=== PATIENT | female | born 1970 | race Caucasian/White ===

== ENCOUNTER 2020-02-11 11:35 | Outpatient (CLI) | payer OTHER | END 2020-02-11 11:36 | disposition critical access hospital (66) | LOC: EMS 11:35 | PROVIDERS: ATTEND Surgery | DX: R68.83 Chills (without fever) (principal); R11.0 Nausea; R51 Headache | CPT/HCPCS: A0425; A0429 ==

== ENCOUNTER 2020-02-11 11:56 | Emergency (ER) | payer OTHER ==
[2020-02-11] MEDS ORDERED: VENLAFAXINE ER 75 MG CAPSULE PO STA (12:19)
--- NOTE | 2020-02-11 12:22 | ED Physician Documentation ---
History of Present Illness - Stated complaint Stated Complaint: ANXIETY - Chief complaint Chief Complaint: General - History obtained from History obtained from: Patient - History of Present Illness Timing: How many days ago (3) Pain level max: 0 Pain level now: 0 - Additonal information Additional information: 49-year-old female states that she ran out of her Effexor 3 days ago. Now feels shaky, nauseated, headache and generally unwell. Denies SI or HI. Nothing makes it better or worse. She takes 225 mg/day. She states that her doctor's office is closed until February 19 for "remodeling". She states that they are not filling out the forms that are needed for the pharmacy to fill her medication. Review of Systems Constitutional: denies: Fever, Chills GI: denies: Vomiting, Diarrhea Musculoskeletal: denies: Neck pain, Back pain Neurologic: denies: Focal weakness, Numbness PD PAST MEDICAL HISTORY - Past Medical History Past Medical History: No - Past Surgical History Past Surgical History: No - Present Medications Home Medications: Ambulatory Orders Medication Instructions Recorded Confirmed Venlafaxine HCl [Venlafaxine HCl 225 mg PO DAILY #14 [email or web address] 02/11/20 ER] - Allergies Allergies/Adverse Reactions: Allergies Allergy/AdvReac Type Severity Reaction Status Date / Time No Known Drug Allergies Allergy Verified 02/11/20 12:08 PD ED PE NORMAL - Vitals Vital signs reviewed: Yes - General General: Alert and oriented X 3, No acute distress - HEENT HEENT: Moist mucous membranes - Neck Neck: Supple, no meningeal sign - Cardiac Cardiac: RRR - Respiratory Respiratory: No respiratory distress, Clear bilaterally - Abdomen Abdomen: Soft, Non tender, Non distended - Derm Derm: Warm and dry - Neuro Neuro: Alert and oriented X 3 - Psych Psych: Normal mood, Normal affect Results - Vitals Vitals: Vital Signs - 24 hr 02/11/20 02/11/20 12:02 12:20 Temperature 36.8 C 36.8 C Heart Rate 72 72 Respiratory 11 L 11 L Rate Blood Pressure 143/93 H 143/93 H O2 Saturation 97 97 Oxygen O2 Source Room air PD MEDICAL DECISION MAKING - ED course Complexity details: considered differential, d/w patient ED course: Patient is out of her Effexor, we will refill 2 weeks worth of medication for her. Given a dose here. She will follow-up with her doctor for further care. Patient counseled regarding signs and symptoms for which I believe and urgent re-evaluation would be necessary. Patient with good understanding of and agreement to plan and is comfortable going home at this time This document was made in part using voice recognition software. While efforts are made to proofread this document, sound alike and grammatical errors may occur. Departure - Departure Disposition: Home, Self Care Clinical Impression: Medication withdrawal Qualifiers: Substance type: sedative, hypnotic or anxiolytic Qualified Code(s): F13.239 - Sedative, hypnotic or anxiolytic dependence with withdrawal, unspecified Condition: Good Instructions: ED Screening Exam Medical Nonurgent Follow-Up: your,doctor in 1 week [Other] Prescriptions: Venlafaxine HCl [Venlafaxine HCl ER] 225 mg PO DAILY #14 tab.[email or web address] Comments: Return if you worsen. Follow-up with your doctor for further medication refills. You can download the [employer] [facility] eduardo, this may help with the lópez metzger of the medication
[2020-02-11 13:08] VITALS: BP 105/22
== END 2020-02-11 13:07 | disposition home or self-care (01) ==
LOC: ED 11:56
DX: F13.239 Sedative, hypnotic or anxiolytic dependence with withdrawal, unspecified (principal); R11.0 Nausea; R51 Headache; Z76.0 Encounter for issue of repeat prescription
CPT/HCPCS: 99283; 99284; A9270

== ENCOUNTER 2020-10-12 08:14 | Outpatient (CLI) | payer OTHER ==
--- NOTE | 2020-10-15 13:30 | Mammography Report ---
BILATERAL DIGITAL DIAGNOSTIC MAMMOGRAM 3D/2D: 10/12/2020 CLINICAL: Palpable left breast lump. Comparison is made to exams dated: 06/14/2019 mammogram, 05/25/2018 mammogram, and 10/05/2017 mammogr am - [facility]. The tissue of both breasts is heterogeneously dense. This may lower the sensiti vity of mammography. There are multiple benign cysts in both breasts, several of which have slightly increased in size. No other significant masses or calcifications are seen in either breast. IMPRESSION: BENIGN There are multiple bilateral cysts which have been present on numerous prior studies. Several of thes e have mildly increased in size. The cysts can be aspirated under ultrasound guidance if warranted cl inically. There is no mammographic evidence of malignancy. Return to annual mammogram screening schedule is recommended. This exam was interpreted at Station ID: [id number]. NOTE: For mammograms, a report in lay terms will be sent to the patient. Approximately 15% of breast malignancies will not be visualized mammographically. In the management of a palpable breast mass, a negative mammogram must not discourage biopsy of a clinically suspicious lesion. Electronically Signed By: Srikanth Wolf M.D. jr/:10/12/2020 09:18:08 ACR BI-RADS Category 2: Benign Finding(s) 3342F PARENCHYMAL PATTERN: (D) - The breast(s) demonstrate(s) heterogeneously dense fibroglandular parangleoy evangelina. BI-RADS CATEGORY: (2) - 2 RECOMMENDATION: (ANNUAL) - Recommend routine annual screening mammography. [id number] return to screening LATERALITY: (B)
== END 2020-10-12 08:15 | disposition home or self-care (01) ==
LOC: DI 08:14
PROVIDERS: ATTEND Physician Assistant Medical
DX: N60.02 Solitary cyst of left breast (principal); N60.01 Solitary cyst of right breast